=== PATIENT | male | born 1980 ===

== ENCOUNTER 2021-04-07 10:20 | Inpatient (IN) ==
[2021-04-07 11:22] LABS: ABS Monocytes 0.5 10^3/ul (0-0.8); ABS Neutrophils 9.1 10^3/ul (1.5-7.7); Eosinophil % 0.1 %; Hematocrit 40 % (42-52); Hemoglobin 13.3 g/dL (14.0-18.0); Lymphocyte % 9.4 %; Mean Corpuscular HGB Conc 33 g/dL (31-36); Mean Corpuscular Hemoglobin 27 pg (27-31); Mean Corpuscular Volume 80 fL (80-94); Platelet Count 480 10^3/uL (150-450); Red Blood Count 5.01 10^6 /uL (4.18-5.48); Red Cell Distribution Width 15 % (10-15); White Blood Count 10.6 10^3/uL (3.5-10.8)
[2021-04-07 11:42] LABS: Albumin 3.6 g/dL (3.2-5.2); Albumin/Globulin Ratio 0.8 (1-3); C Reactive Protein 140.51 mg/L (<8.01); Calcium 9.6 mg/dL (8.6-10.3); Globulin 4.5 g/dL (2-4); Magnesium 1.9 mg/dL (1.9-2.7); Potassium 4.1 mmol/L (3.5-5.0); Total Bilirubin 0.5 mg/dL (0.2-1.0); Total Protein 8.1 g/dL (6.4-8.9)
[2021-04-07 11:43] LABS: Troponin I 0.01 ng/mL (<0.03)
[2021-04-07 12:20] LABS: HIV 4th Generation Nonreactive (Nonreactive)
[2021-04-07 12:44] LABS: TSH Ultra Thyroid Stim Horm 1.17 mcIU/mL (0.34-5.60)
[2021-04-07] MEDS ORDERED: Morphine ER 15 mg TAB ** extended release PO ONE (13:58)
[2021-04-07 16:09] LABS: Rapid COVID-19 Molecular Undetected (Undetected)
[2021-04-07] MEDS: Enoxaparin 40 MG/0.4 ML SYR SUBCUT SCH (16:58)
[2021-04-07 17:00] LABS: Erythrocyte Sed Rate 97 mm/Hr (0-14)
[2021-04-07] MEDS: Morphine ORAL.SOLN 10 mg 2 mg/ml UDC 5 ml (10 mg) PO PRN (18:38)
[2021-04-08 06:16] LABS: ABS Lymphocytes 1.2 10^3/ul (1.0-4.8); ABS Monocytes 0.1 10^3/ul (0-0.8); ABS Neutrophils 4.9 10^3/ul (1.5-7.7); Hematocrit 41 % (42-52); Hemoglobin 13.8 g/dL (14.0-18.0); Lymphocyte % 19.9 %; Mean Corpuscular HGB Conc 34 g/dL (31-36); Mean Corpuscular Hemoglobin 27 pg (27-31); Mean Corpuscular Volume 81 fL (80-94); Mean Platelet Volume 7.1 fL (7.4-10.4); Platelet Count 544 10^3/uL (150-450); Red Blood Count 5.04 10^6 /uL (4.18-5.48); Red Cell Distribution Width 15 % (10-15); White Blood Count 6.3 10^3/uL (3.5-10.8)
[2021-04-08 06:33] LABS: Calcium 9.9 mg/dL (8.6-10.3); Potassium 4.2 mmol/L (3.5-5.0)
[2021-04-08] MEDS: Morphine ORAL.SOLN 10 mg 2 mg/ml UDC 5 ml (10 mg) PO PRN (09:28)
[2021-04-08] MEDS: Morphine ER 30 mg TAB ** extended release PO SCH ×2 (14:33→21:08)
[2021-04-08] MEDS: Enoxaparin 40 MG/0.4 ML SYR SUBCUT SCH (16:04)
[2021-04-09] MEDS: Morphine ER 30 mg TAB ** extended release PO SCH ×2 (08:52→21:16)
[2021-04-09] MEDS ORDERED: Polyethylene Glycol 3350 17 GM PACKET PO PRN (13:37)
[2021-04-09] MEDS ORDERED: Senna TAB 8.6 mg TAB PO PRN (13:37)
[2021-04-09] MEDS ORDERED: Magnesium Hydroxide LIQ 30 ML UDC PO PRN (13:37)
[2021-04-09] MEDS: Enoxaparin 40 MG/0.4 ML SYR SUBCUT SCH (17:23)
[2021-04-09 21:44] LABS: C Reactive Protein 117.92 mg/L (<8.01)
[2021-04-09 22:35] LABS: Hepatitis C Antibody Negative (Negative)
[2021-04-09 23:29] LABS: Hepatitis B Surface Antigen Nonreactive (Nonreactive)
[2021-04-09 23:35] LABS: Hepatitis B Core IgM Nonreactive (Nonreactive)
[2021-04-10 07:40] LABS: Hepatitis A Ab IgM QNS (Negative)
[2021-04-10] MEDS: Morphine ER 30 mg TAB ** extended release PO SCH (09:25)
[2021-04-10 11:20] LABS: Hepatitis A Ab IgM Negative (Negative)
[2021-04-10] MEDS ORDERED: COVID-19 VACCINE, MRNA(MODERNA)/PF 100 MCG/0.5 ML IM ONE (11:46)
[2021-04-10] MEDS: Enoxaparin 40 MG/0.4 ML SYR SUBCUT SCH (14:38)
[2021-04-10 14:57] VITALS: BP 110/76
[2021-04-10 18:36] LABS: Cyclic Citrullinated Pept IgG <15.6 U
== END 2021-04-10 16:25 | disposition swing bed (61) | DRG 346 ==
LOC: ED 10:20 → SUATTDRO 15:04 → MED 15:04 → INTOOBSV 15:04 → MED 04-08 00:23
PROVIDERS: ADMIT Internal Medicine; ATTEND Student in an Organized Health Care Education/Training Program